=== PATIENT | male | born 1950 | race Caucasian/White ===

== ENCOUNTER 2017-12-14 11:36 | Emergency (ER) | payer OTHER ==
[2017-12-14 11:55] VITALS: BP 177/88
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
[2017-12-14] MEDS ORDERED: DEXAMETHASONE 10 MG/ML VIAL PO STA (13:33)
== END 2017-12-14 13:50 | disposition home or self-care (01) ==
LOC: ED 11:36
DX: S22.41XA Multiple fractures of ribs, right side, initial encounter for closed fracture (principal); V29.9XXA Motorcycle rider (driver) (passenger) injured in unspecified traffic accident, initial encounter; Y92.488 Other paved roadways as the place of occurrence of the external cause
CPT/HCPCS: 99283